=== PATIENT | female | born 2000 | race Caucasian/White ===

== ENCOUNTER 2018-11-23 02:29 | Emergency (ER) | payer SELFPAY ==
[~2018-11-23] VITALS: Ht 172.7 cm; Wt 122.7 kg
[2018-11-23 02:35] VITALS: BP 120/68; TEMP 98.7
[2018-11-23 02:52] LABS: COLLECTION METHOD CLEAN CATCH
[2018-11-23 02:58] LABS: MUCOUS Present /lpf; PH 7 (5-8); URINE APPEARANCE Hazy; URINE BACTERIA Many /hpf; URINE BILIRUBIN Negative (NEGATIVE); URINE BLOOD 3+ (NEGATIVE); URINE COLOR Straw; URINE GLUCOSE Negative (NEGATIVE); URINE KETONE Negative (NEGATIVE); URINE LEUKOCYTE ESTERASE Negative (NEGATIVE); URINE NITRATE Negative (NEGATIVE); URINE PROTEIN(semi-quant) Negative (NEGATIVE); URINE UROBILINOGEN Negative (NEGATIVE)
[2018-11-23 03:29] LABS: BASO % 0.3 % (0.0-2.0); EOS # 0.1 (0.0-0.7); EOS % 1.2 % (0-4.0); GRAN # 6.5 (1.4-6.5); GRAN % 58.4 % (42.2-75.2); HEMATOCRIT 38.6 % (35.0-45.0); HEMOGLOBIN 11.9 g/dl (12.0-15.0); LYMPH # 3.5 (1.2-3.4); LYMPH % 31.6 % (20.0-51.0); MEAN CELL VOLUME 84 fl (80.0-95.0); MEAN CORPUSCULAR HEMOGLOBIN 26 pg (26.0-32.0); MEAN CORPUSCULAR HGB CONC 31 g/dl (33.0-37.0); MEAN PLATELET VOLUME 9.9 fl (7.4-10.4); MONO # 0.9 (0.1-0.6); MONO % 8.3 % (1.7-9.3); PLATELET COUNT 318 K/mm3 (130-400); RED BLOOD COUNT 4.61 M/mm3 (4.10-5.30); REDCELL DISTRIBUTION WIDTH-CV 14.7 % (11.5-14.5)
[2018-11-23 03:52] LABS: ALBUMIN 4.1 gm/dL (3.5-5.0); BILIRUBIN,TOTAL 0.1 mg/dL (0.0-1.0); CALCIUM 9.3 mg/dL (8.4-10.2); CREATININE, serum 0.54 (0.52-1.25); POTASSIUM 3.9 mmol/L (3.4-5.0); TOTAL PROTEIN 7.5 gm/dL (6.4-8.2)
[2018-11-23 05:25] VITALS: PULSE 68
[2018-11-23] MEDS ORDERED: IBU800 M1 PO (13:22)
[2018-11-23] MEDS ORDERED: NORCO 325 MG-51 TAB PO (13:22)
== END 2018-11-23 05:25 | disposition home or self-care (01) ==
LOC: COL.ER 02:29
PROVIDERS: Emergency Medicine
DX: R10.31 Right lower quadrant pain (principal); F17.210 Nicotine dependence, cigarettes, uncomplicated
CPT/HCPCS: J3010; J7030; Q9967

== ENCOUNTER 2018-11-23 10:45 | Emergency (ER) | payer SELFPAY ==
[~2018-11-23] VITALS: Ht 172.7 cm; Wt 122.7 kg
[2018-11-23] MEDS ORDERED: IBU800 M1 PO (13:22)
[2018-11-23] MEDS ORDERED: NORCO 325 MG-51 TAB PO (13:22)
[2018-11-23 13:38] VITALS: BP 118/78; PULSE 80; TEMP 98.1
== END 2018-11-23 13:39 | disposition home or self-care (01) ==
LOC: COL.ER 10:45
DX: N83.201 Unspecified ovarian cyst, right side (principal); F17.210 Nicotine dependence, cigarettes, uncomplicated; Z88.8 Allergy status to other drugs, medicaments and biological substances
CPT/HCPCS: J1885

== ENCOUNTER 2019-02-26 16:34 | Emergency (ER) | payer SELFPAY ==
[~2019-02-26] VITALS: Ht 172.7 cm; Wt 122.7 kg
[~2019-02-26 16:34] MED LIST changes: -LO LOESTRIN FE1 TAB PO
[2019-02-26 17:46] LABS: BASO # 0.1 (0.0-0.2); BASO % 0.6 % (0.0-2.0); EOS # 0.1 (0.0-0.7); EOS % 0.8 % (0-4.0); GRAN # 6.3 (1.4-6.5); GRAN % 64.3 % (42.2-75.2); HEMATOCRIT 40.3 % (35.0-45.0); HEMOGLOBIN 12.5 g/dl (12.0-15.0); LYMPH # 2.7 (1.2-3.4); LYMPH % 27.6 % (20.0-51.0); MEAN CELL VOLUME 84 fl (80.0-95.0); MEAN CORPUSCULAR HEMOGLOBIN 26 pg (26.0-32.0); MEAN CORPUSCULAR HGB CONC 31 g/dl (33.0-37.0); MONO # 0.6 (0.1-0.6); MONO % 6.5 % (1.7-9.3); PLATELET COUNT 308 K/mm3 (130-400); RED BLOOD COUNT 4.79 M/mm3 (4.10-5.30)
[2019-02-26 17:50] LABS: ALANINE AMINOTRANSFERASE 25 U/L (9-52); ALBUMIN 4.6 gm/dL (3.5-5.0); ALKALINE PHOSPHATASE 60 U/L (50-136); ANION GAP 10 mmol/L (7-16); AST,SGOT 21 U/L (15-37); BILIRUBIN,TOTAL 0.3 mg/dL (0.0-1.0); BLOOD UREA NITROGEN 10 mg/dL (7-17); CALCIUM 9.4 mg/dL (8.4-10.2); CARBON DIOXIDE 27 mmol/L (22-30); CHLORIDE 105 mmol/L (98-107); CREATININE, serum 0.58 (0.52-1.25); GLUCOSE 101 mg/dL (74-106); SODIUM 142 mmol/L (137-145); TOTAL PROTEIN 8.5 gm/dL (6.4-8.2)
[2019-02-26 17:52] LABS: ACETAMINOPHEN < 10 ug/mL (10-30); ALCOHOL(ethanol),MEDICAL < 10 mg/dL; SALICYLATE < 1.0 mg/dL
[2019-02-26 18:43] LABS: COLLECTION METHOD CLEAN CATCH
[2019-02-26 18:59] LABS: TRICYCLIC ANTIDEPRESS URINE NEGATIVE
[2019-02-26 19:01] LABS: PH 5 (5-8); URINE APPEARANCE Cloudy; URINE BILIRUBIN Negative (NEGATIVE); URINE BLOOD 2+ (NEGATIVE); URINE COLOR Yellow; URINE GLUCOSE Negative (NEGATIVE); URINE KETONE Negative (NEGATIVE); URINE LEUKOCYTE ESTERASE Trace (NEGATIVE); URINE NITRATE Negative (NEGATIVE); URINE PROTEIN(semi-quant) Negative (NEGATIVE); URINE UROBILINOGEN Negative (NEGATIVE)
[2019-02-27] MEDS ORDERED: LO LOESTRIN FE1 TAB PO (01:17)
[2019-02-27 02:29] VITALS: BP 113/67; PULSE 93; TEMP 98.7
== END 2019-02-27 02:30 | disposition home or self-care (01) ==
LOC: COL.ER 16:34
PROVIDERS: Family Medicine
DX: T74.21XA Adult sexual abuse, confirmed, initial encounter (principal); S10.93XA Contusion of unspecified part of neck, initial encounter

== ENCOUNTER → 2019-02-26 | Outpatient (REF) ==
[~2019-02-26] MED LIST: IBU800 M1 PO; LO LOESTRIN FE1 TAB PO; NORCO 325 MG-51 TAB PO
== END ==
LOC: COL.ER 18:46
DX: T74.21XA Adult sexual abuse, confirmed, initial encounter (principal); Y04.8XXA Assault by other bodily force, initial encounter

== ENCOUNTER → 2019-02-26 | Outpatient (CLI) | payer SELFPAY | LOC: LDRO 18:48 | DX: Z04.41 Encounter for examination and observation following alleged adult rape (principal) | CPT/HCPCS: J0696 ==

== ENCOUNTER 2020-05-15 22:57 | Observation (INO) | payer SELFPAY ==
[~2020-05-15] VITALS: Ht 172.7 cm; Wt 86.4 kg
[~2020-05-15 22:57] MED LIST changes: +LO LOESTRIN FE1 TAB PO
[2020-05-15 23:16] LABS: BASO % 0.3 % (0.0-2.0); EOS % 0.1 % (0-4.0); GRAN # 10.4 (1.4-6.5); GRAN % 66.1 % (42.2-75.2); HEMATOCRIT 37.8 % (37.0-47.0); HEMOGLOBIN 11.8 g/dl (12.5-16.0); LYMPH # 4.2 (1.2-3.4); LYMPH % 26.6 % (20.0-51.0); MEAN CELL VOLUME 87 fl (80.0-100.0); MEAN CORPUSCULAR HEMOGLOBIN 27 pg (27.0-31.0); MEAN CORPUSCULAR HGB CONC 31 g/dl (33.0-37.0); MONO % 6.5 % (1.7-9.3); PLATELET COUNT 336 K/mm3 (130-400); RED BLOOD COUNT 4.35 M/mm3 (4.10-5.30); REDCELL DISTRIBUTION WIDTH-CV 13.9 % (11.5-14.5)
[2020-05-15 23:26] LABS: CALCIUM 9.3 mg/dL (8.4-10.2); CREATININE, serum 0.64 (0.52-1.25); POTASSIUM 3.7 mmol/L (3.4-5.0)
[2020-05-15 23:45] VITALS: BP 117/55; PULSE 79
[2020-05-16] VITALS (7 sets, daily range): BP systolic 106–124; BP diastolic 47–58; PULSE 72–80; TEMP 98.9
--- NOTE | 2020-05-16 00:49 | NUR ---
Patient awake, alert, oriented x 4, respirations even and unlabored, transferred from PACU, at bedside, urinated upon arrival w/o difficulty, ambulated with steady gait, sipping on water.
--- NOTE | 2020-05-16 02:59 | NUR ---
Pt. met criteria to Discharge. Pt. given discharge paperwork. Paperwork reviewed with the pt. Pt. voices understanding. INT discontinued from lt. ac. Pt. dressed and escorted out by wheelchair.
== END 2020-05-16 02:40 | disposition home or self-care (01) ==
LOC: COL.ER 22:57 → SURG 23:03
PROVIDERS: Emergency Medicine; ADMIT Student in an Organized Health Care Education/Training Program
DX: J95.830 Postprocedural hemorrhage of a respiratory system organ or structure following a respiratory system procedure (principal); Z88.8 Allergy status to other drugs, medicaments and biological substances; F32.9 Major depressive disorder, single episode, unspecified; F41.9 Anxiety disorder, unspecified; E66.9 Obesity, unspecified
CPT/HCPCS: J0330; J1100; J2250; J2405; J2704; J3010

== ENCOUNTER 2021-01-10 03:46 | Emergency (ER) | payer SELFPAY ==
[~2021-01-10] VITALS: Ht 175.3 cm; Wt 72.7 kg
[2021-01-10 03:52] VITALS: BP 130/88; PULSE 101; TEMP 97.2
== END 2021-01-10 05:03 | disposition home or self-care (01) ==
LOC: COL.ER 03:46
DX: T76.21XA Adult sexual abuse, suspected, initial encounter (principal)